=== PATIENT | male | born 1950 | race Caucasian/White ===

== ENCOUNTER 2016-12-09 10:35 | Day surgery (SDC) | payer MEDICARE ==
[~2016-12-09] VITALS: Ht 188 cm; Wt 77.5 kg
[~2016-12-09 10:35] MED LIST: CYAN100028 PO; MELA1TAB7 PO; OXYC1TAB9 PO
[2016-12-09 10:55] VITALS: BP 136/68
[2016-12-09] MEDS ORDERED: vitamin b12 INJ (10:55)
[2016-12-09] MEDS ORDERED: LACTATED RINGERS 1,000 ML IV SCH (10:58)
[2016-12-09] MEDS ORDERED: PROPOFOL 10 MG/ML, 20ML ONE (11:08)
[2016-12-09] MEDS ORDERED: DEXAMETHASONE 4 MG/ML, 1ML ONE (11:08)
[2016-12-09] MEDS ORDERED: ONDANSETRON 2MG/ML, 2ML ONE (11:08)
== END 2016-12-09 13:05 ==
LOC: OUT 10:35
PROVIDERS: ATTEND Internal Medicine Geriatric Medicine
DX: K62.1 Rectal polyp (principal); K57.30 Diverticulosis of large intestine without perforation or abscess without bleeding; K64.0 First degree hemorrhoids; Z98.890 Other specified postprocedural states; Z80.8 Family history of malignant neoplasm of other organs or systems; Z87.891 Personal history of nicotine dependence; Z72.89 Other problems related to lifestyle; Z88.8 Allergy status to other drugs, medicaments and biological substances
CPT/HCPCS: 45380; 45391; 88305; J1100; J2405; J2704; J7120

== ENCOUNTER → 2018-05-19 | Outpatient (CLI) | payer MEDICARE ==
[~2018-05-19] MED LIST changes: +OXYC-432 PO; -OXYC1TAB9 PO; +vitamin b12 INJ
[2018-05-19 12:47] LABS: CREATININE 0.99 mg/dL (0.7-1.3)
== END | disposition home or self-care (01) ==
LOC: CFH 11:24
PROVIDERS: ATTEND Radiology Radiation Oncology
DX: T50.8X4A Poisoning by diagnostic agents, undetermined, initial encounter (principal); Y92.89 Other specified places as the place of occurrence of the external cause
CPT/HCPCS: 36415; 82565; 84520

== ENCOUNTER → 2018-05-19 | Outpatient (CLI) | payer MEDICARE | END | disposition home or self-care (01) | LOC: ROC 08:24 | PROVIDERS: ATTEND Radiology Radiation Oncology | DX: C34.12 Malignant neoplasm of upper lobe, left bronchus or lung (principal); C79.31 Secondary malignant neoplasm of brain; E03.9 Hypothyroidism, unspecified | CPT/HCPCS: 77290; 77334; 77470; G0463 ==

== ENCOUNTER → 2018-05-21 | Outpatient (CLI) | payer MEDICARE ==
[~2018-05-21] MED LIST changes: +GADOBUTROL 10 MMOL/10 ML PFS ONE
== END | disposition home or self-care (01) ==
LOC: CFH 11:54
PROVIDERS: ATTEND Family Medicine
DX: C79.31 Secondary malignant neoplasm of brain (principal); C34.90 Malignant neoplasm of unspecified part of unspecified bronchus or lung; G31.9 Degenerative disease of nervous system, unspecified; Z98.890 Other specified postprocedural states
CPT/HCPCS: 70553; A9585

== ENCOUNTER 2018-07-15 07:37 | Outpatient (CLI) | payer MEDICARE ==
[~2018-07-15 07:37] MED LIST changes: -GADOBUTROL 10 MMOL/10 ML PFS ONE
== END 2018-07-15 23:59 | disposition home or self-care (01) ==
LOC: ROC 07:37
PROVIDERS: ATTEND Radiology Radiation Oncology
DX: C79.31 Secondary malignant neoplasm of brain (principal)
CPT/HCPCS: G0463